=== PATIENT | female | born 1980 | race Hispanic/Latino ===

== ENCOUNTER 2018-01-08 14:30 | Emergency (ER) | payer OTHER, SELFPAY ==
[2018-01-08 15:40] LABS: #Eosinphils 0.1 thou/uL (0.0-0.7); #Lymphocytes 2.5 thou/uL (1.20-3.40); #Monocytes 0.8 thou/uL (0.11-0.59); #Neutrophils 8.8 thou/uL (1.40-6.50); %Basophils 0.4 % (0.0-1.0); %Eosinophils 0.5 % (0.0-10.0); %Lymphocytes 20.3 % (21.0-51.0); %Monocytes 6.7 % (0.0-10.0); %Neutrophils 72.1 % (42.0-75.0); Hemoglobin 13.6 g/dL (12.0-16.0); Mean Corpuscular HGB CONC 34.5 g/dL (32.0-36.0); Mean Corpuscular Hemoglobin 32.6 pg (27.0-31.0); Mean Corpuscular Volume 94.4 fl (81.0-99.0); Mean Platelet Volume 8.4 fL (7.4-10.4); Platelet Count 240 thou/uL (130-400); RBC Distribution Width 13.3 % (11.5-14.5); Red Blood Cell (RBC) Count 4.19 mill/uL (4.20-5.40); White Blood Cell (WBC) Count 12.2 thou/uL (4.8-10.8)
[2018-01-08 15:50] LABS: Pregnancy Test - Urine (BHCG) POSITIVE (Negative); Pregu Control Background? CLEAR/WHITE (CLR/WHITE); Pregu Control Bar Appear? YES (CONTROL BAR); Specific Gravity 1.016 (1.002-1.036)
[2018-01-08 15:53] LABS: Bacteria/HPF 1+ HPF (None Seen); Bilirubin Negative (Negative); Blood, Urine Trace (Negative); Clarity CLOUDY (Clear); Glucose, Urine (Dipstick) Negative (Negative); Hyaline Casts/LPF 4-6 HYALINE CAST LPF (0-3 Hyaline); Leukocyte Negative (Negative); Nitrite Negative (Negative); Pathc Cast-AUWi Flag 1.45 (0-2.49); Protein, Urine (Dipstick) Negative (Neg-Trace); Specific Gravity, Urine 1.016 (1.002-1.036); pH, Urine 6.5 (5.0-9.0)
[2018-01-08 15:54] LABS: Yeast-AUWi Flag 61.3 (0-25.0)
[2018-01-08 16:02] LABS: ALT (SGPT) 10 U/L (8-55); AST (SGOT) 12 U/L (5-34); Albumin 4.2 g/dL (3.5-5.0); Alkaline Phosphatase 69 U/L (40-150); Anion Gap 14 mmol/L (10-20); BUN (Urea Nitrogen) 7 mg/dL (7.0-18.7); Bilirubin, Total 0.6 mg/dL (0.2-1.2); Calc. Creatinine Clearance 0 mL/min (70-130); Calcium 9.3 mg/dL (7.8-10.44); Carbon Dioxide 19 mmol/L (22-29); Chloride 105 mmol/L (98-107); Estimated GFR-MDRD Greater than 90; Globulin 3.2 g/dL (2.4-3.5); Glucose 82 mg/dL (70-105); Potassium 3.2 mmol/L (3.5-5.1); Protein, Total 7.4 g/dL (6.0-8.3); Sodium 135 mmol/L (136-145)
[2018-01-08 16:16] LABS: RBC/HPF 0-3 HPF (0-3); Squamous Epithelial 21-50 HPF (0-3); Yeast-All Forms None Seen HPF (None Seen)
[2018-01-08] MEDS ORDERED: Promethazine HCl 25 MG/ML VIAL ONE (16:24)
[2018-01-08] MEDS ORDERED: Morphine 4 MG/ML VIAL ONE (16:24)
== END 2018-01-08 19:36 | disposition home or self-care (01) ==
LOC: ERS 14:30
DX: O09.511 Supervision of elderly primigravida, first trimester (principal); O21.9 Vomiting of pregnancy, unspecified; O99.611 Diseases of the digestive system complicating pregnancy, first trimester; K21.9 Gastro-esophageal reflux disease without esophagitis; O99.341 Other mental disorders complicating pregnancy, first trimester; F41.9 Anxiety disorder, unspecified; Z79.899 Other long term (current) drug therapy; Z3A.00 Weeks of gestation of pregnancy not specified
CPT/HCPCS: 36415; 51701; 80053; 81003; 81015; 81025; 84702; 85025; 96361; 96365; 96375; A4353; J2270; J2550

== ENCOUNTER 2018-08-12 16:39 | Day surgery (SDC) | payer MEDICAID, OTHER ==
[2018-08-12 17:19] VITALS: BMI 36.6
[2018-08-12 19:24] LABS: Mean Corpuscular HGB CONC 33.3 g/dL (32.0-36.0); Mean Corpuscular Hemoglobin 28.8 pg (27.0-31.0); Mean Corpuscular Volume 86.5 fL (78.0-98.0); Mean Platelet Volume 9.1 fL (7.4-10.4); Platelet Count 247 thou/uL (130-400); RBC Distribution Width 13.9 % (11.5-14.5); Red Blood Cell (RBC) Count 3.84 mill/uL (4.20-5.40); White Blood Cell (WBC) Count 10.9 thou/uL (4.8-10.8)
[2018-08-12 19:45] LABS: ALT (SGPT) 15 U/L (8-55); AST (SGOT) 18 U/L (5-34); Albumin 3.2 g/dL (3.5-5.0); Alkaline Phosphatase 127 U/L (40-150); Anion Gap 12 mmol/L (10-20); BUN (Urea Nitrogen) 11 mg/dL (7.0-18.7); Bilirubin, Total 0.2 mg/dL (0.2-1.2); Calc. Creatinine Clearance 220 mL/min (70-130); Calcium 9.1 mg/dL (7.8-10.44); Carbon Dioxide 23 mmol/L (22-29); Chloride 106 mmol/L (98-107); Estimated GFR-MDRD Greater than 90; Globulin 3.1 g/dL (2.4-3.5); Glucose 68 mg/dL (70-105); Potassium 3.8 mmol/L (3.5-5.1); Protein, Total 6.3 g/dL (6.0-8.3); Sodium 137 mmol/L (136-145)
== END 2018-08-12 20:39 | disposition home or self-care (01) ==
LOC: L&D/OP 16:39
PROVIDERS: ATTEND Student in an Organized Health Care Education/Training Program
DX: O16.9 Unspecified maternal hypertension, unspecified trimester (principal); Z79.52 Long term (current) use of systemic steroids; Z79.899 Other long term (current) drug therapy
CPT/HCPCS: 36415; 80053; 82570; 84156; 85027; 87081; 99284

== ENCOUNTER 2018-08-25 15:37 | Inpatient (IN) | payer OTHER ==
[~2018-08-25 15:37] MED LIST: Bupivacaine HCl 0.25%/Epi 0.0005/PF 10 ML VIAL FS ONE; Terbutaline Sulfate 1 MG/ML VIAL ONE
[2018-08-25] MEDS ORDERED: Diphenoxylate HCl/Atropine Tablet PO PRN (15:53)
[2018-08-25] MEDS ORDERED: Ondansetron PF 4 MG/2 ML Vial IVP PRN ×2 (15:53→22:27)
[2018-08-25] MEDS ORDERED: NS / Oxytocin 40 units/1000ml 1,000 ML IV PRN (15:53)
[2018-08-25] MEDS ORDERED: Acetaminophen 500 MG TAB PO PRN (15:53)
[2018-08-25] MEDS ORDERED: Carboprost 250 MCG/ML AMP IM PRN (15:53)
[2018-08-25] MEDS ORDERED: Promethazine HCl 25 MG/ML VIAL IM PRN ×2 (15:53→22:27)
[2018-08-25] MEDS ORDERED: Lidocaine 1% (PF) 30 ML VIAL SC PRN (15:53)
[2018-08-25] MEDS ORDERED: Ibuprofen 800 MG TAB PO PRN (15:53)
[2018-08-25] MEDS ORDERED: Methylergonovine 0.2 MG/ML VIAL IM PRN (15:53)
[2018-08-25] MEDS ORDERED: Misoprostol 200 MCG TAB PR PRN (15:53)
[2018-08-25] MEDS ORDERED: HYDROcodone/Acetaminophen 5/325 mg Tablet PO PRN (15:53)
[2018-08-25] MEDS ORDERED: Butorphanol Tartrate 1 MG/ML VIAL SLOW IVP PRN (15:53)
[2018-08-25] MEDS: Lactated Ringer's 1,000 ML IV SCH ×2 (16:15→17:27)
[2018-08-25 16:35] LABS: Hemoglobin 10.7 g/dL (12.0-16.0); Mean Corpuscular HGB CONC 32.6 g/dL (32.0-36.0); Mean Corpuscular Hemoglobin 28.8 pg (27.0-31.0); Mean Corpuscular Volume 88.3 fL (78.0-98.0); Mean Platelet Volume 9.2 fL (7.4-10.4); Platelet Count 250 thou/uL (130-400); RBC Distribution Width 14.2 % (11.5-14.5); Red Blood Cell (RBC) Count 3.72 mill/uL (4.20-5.40); White Blood Cell (WBC) Count 12.8 thou/uL (4.8-10.8)
[2018-08-25] MEDS: Misoprostol 100 MCG TAB PO SCH ×2 (16:52→19:57)
[2018-08-25 16:56] LABS: ALT (SGPT) 15 U/L (8-55); AST (SGOT) 17 U/L (5-34); Albumin 3.5 g/dL (3.5-5.0); Alkaline Phosphatase 149 U/L (40-150); Anion Gap 12 mmol/L (10-20); BUN (Urea Nitrogen) 10 mg/dL (7.0-18.7); Bilirubin, Total 0.3 mg/dL (0.2-1.2); Calc. Creatinine Clearance 0 mL/min (70-130); Calcium 9.6 mg/dL (7.8-10.44); Carbon Dioxide 23 mmol/L (22-29); Chloride 108 mmol/L (98-107); Estimated GFR-MDRD Greater than 90; Globulin 2.8 g/dL (2.4-3.5); Glucose 70 mg/dL (70-105); Potassium 4.4 mmol/L (3.5-5.1); Protein, Total 6.3 g/dL (6.0-8.3); Sodium 139 mmol/L (136-145)
[2018-08-25 17:09] VITALS: BMI 37.1
[2018-08-25 17:17] LABS: HBSAg Index 0.16 S/CO (0-0.99); Hep B Surf Ag Non-Reactive S/CO (NonReactive)
[2018-08-25] MEDS ORDERED: NS w/ Oxytocin 10 units 500 ML IV SCH (17:30)
[2018-08-25 18:22] LABS: Syphilis Antibody Nonreactive (Nonreactive); Syphilis Antibody Index 0.03 S/CO (<1.00 Non-Reactive)
[2018-08-25 18:39] LABS: Bilirubin Negative (Negative); Blood, Urine Trace (Negative); Clarity CLOUDY (Clear); Glucose, Urine (Dipstick) Negative (Negative); Leukocyte Trace (Negative); Nitrite Negative (Negative); Protein, Urine (Dipstick) Negative (Neg-Trace); Specific Gravity, Urine 1.017 (1.002-1.036); Urobilinogen 0.2 mg/dL (0.2-1.0)
[2018-08-25 18:42] LABS: Bacteria/HPF Rare-Few HPF (None Seen); Hyaline Casts/LPF 4-6 HYALINE CAST LPF (0-3 Hyaline); Pathc Cast-AUWi Flag 1.45 (0-2.49); WBC/HPF 0-3 HPF (0-3)
[2018-08-25] MEDS: Hydrocortisone Sod Succ/PF 100 mg/2 ml Vial IVP SCH (19:16)
--- NOTE | 2018-08-25 19:29 | PDOC.LDHP ---
Labor and Delivery H&P Chief complaint: loss of fluid HPI: 37yo at 38w5d by LMP with c/o LOF since this morning around 0800, yellow- clear in color, occ ctx. Occ blurry vision, no ALANIS, RUQ pain. Good FM. Current gestational age (weeks): 38 Due date: 09/03/18 Dating criteria: last menstrual period Grav: 1 Para: 0 Current complications: none Abnormal US findings: No Past Medical History: rheumatoid arthritis, vitamin d deficiency, Current medications: pre-juventino vitamins, iron, other (prednisone 10mg po daily, protonix 40mg po daily, vitamin d, folic acid) Previous surgical history: other (ventral hernia repair) Allergies/Adverse Reactions: Allergies Allergy/AdvReac Type Severity Reaction Status Date / Time No Known Drug Allergies Allergy Verified 08/25/18 16:59 Social history: none - Physical Exam Vital signs reviewed and normal: yes General: NAD Heart: RRR Lungs: CTAB Abdomen: gravid Extremeties: no edema FHT: category 1 [place] contractions every: 10min - Vaginal Exam cm dilated: 1 Effacement: 50% Station: -2 - OB Labs Blood type: O RH: positive Antibody Screen: negative HIV: negative RPR: negative HEPSAg: negative 1 hour GCT: negative GBS: negative Urine drug screen: negative Rubella: immune - Assessment L&D Assessment: term rupture in membranes - Plan Plan: admit to L&D, cervical ripening, labor augmentation if indicated, informed consent obtained, anesthesia consult for pain management -: R/o PIH with serial pressures, labs and urine. Inital BP in office was 160/ 100. Mag for severe features Stress dose steroids for chronic steroid use, cont prednisone also.
[2018-08-25] MEDS ORDERED: Fentanyl 4 mcg/Bup 0.1% Cadd 100 ML ONE (21:13)
[2018-08-25] MEDS ORDERED: Hydrocortisone Sod Succ/PF 100 mg/2 ml Vial IVP SCH (22:00)
[2018-08-25] MEDS ORDERED: Lidocaine 1.5% w/Epi 1:200K 30 ML VIAL (Epid Use) ONE (22:06)
[2018-08-25] MEDS ORDERED: diphenhydrAMINE 50 MG/ML VIAL IVP PRN (22:27)
[2018-08-25] MEDS ORDERED: Acetaminophen 325 MG TAB PO PRN (22:27)
[2018-08-25] MEDS ORDERED: Lactated Ringer's 500 ML IV PRN (22:27)
[2018-08-25] MEDS ORDERED: Naloxone HCl 0.4 mg/ml Vial IVP PRN ×2 (22:27)
[2018-08-25] MEDS ORDERED: ePHEDrine/0.9% NaCl/PF SYRINGE 50 mg/10 ml SLOW IVP PRN (22:27)
[2018-08-25] MEDS ORDERED: Eucerin (Mineral Oil/Petrolatum,White) 30 gm Jar TOP PRN (22:27)
[2018-08-25] MEDS ORDERED: Fentanyl 4 mcg/Bupivacaine 0.1% Cassette 100 ML EPIDURAL SCH (22:30)
[2018-08-25] MEDS ORDERED: Communication Order-Pharmacy FS SCH (22:30)
[2018-08-26] MEDS ORDERED: Calcium Carbonate 500 MG ChewTAB PO PRN ×2 (01:39→09:00)
[2018-08-26] MEDS ORDERED: Lidocaine 1% (PF) 30 ML VIAL ONE (01:51)
[2018-08-26] MEDS ORDERED: Misoprostol 200 MCG TAB ONE (02:32)
[2018-08-26] MEDS ORDERED: Methylergonovine 0.2 MG/ML VIAL ONE (02:32)
--- NOTE | 2018-08-26 02:49 | PDOC.OPDEL ---
OB Operative/Delivery Note Delivery Dr/Surgeon: Jaylon Assist: n/a Pre-Delivery Diagnosis: ruptured membrane Procedure/Post Delivery Dx: spontaneous vaginal delivery Weeks gestation: 38 Anesthesia: epidural - Findings A Sex: female - 1 min: 8 - 5 min: 9 - Additional Findings/Plan Placenta delivered: spontaneous Repaired Obstetrical Laceration: 1st degree (repaired with 3-0 vicryl and left periurethral repaired with 3-0 vicryl for hemostasis) Estimated blood loss: 588 cc qbl Compilations/Other Findings: boggy uterus noted after delivery, pitocin infusing, red rubber used to drain bladder, bimanual massage performed and cytotec methergine called for. Tone quickly improved with massage, cytotec 800mcg placed pr, bleeding minimal. Post delivery plan: routine recovery
[2018-08-26] MEDS ORDERED: Lanolin Ointment 7 GM TUBE TOP PRN (03:46)
[2018-08-26] MEDS ORDERED: HYDROcodone/Acetaminophen 5/325 mg Tablet PO PRN (03:46)
[2018-08-26] MEDS ORDERED: Ondansetron PF 4 MG/2 ML Vial IVP PRN (03:46)
[2018-08-26] MEDS ORDERED: Preparation H Ointment 28 GM TUBE PR PRN (03:46)
[2018-08-26] MEDS ORDERED: Milk Of Magnesia 30 ML UDCUP PO PRN (03:46)
[2018-08-26] MEDS ORDERED: Bisacodyl 10 MG SUPP PR PRN (03:46)
[2018-08-26] MEDS ORDERED: Benzocaine/Menthol 20-0.5% 60 ML CAN TOP PRN (03:46)
[2018-08-26] MEDS ORDERED: diphenhydrAMINE 25 MG CAP PO PRN (03:46)
[2018-08-26] MEDS ORDERED: NS / Oxytocin 40 units/1000ml 1,000 ML IV SCH (03:46)
[2018-08-26] MEDS: Hydrocortisone Sod Succ/PF 100 mg/2 ml Vial IVP SCH ×3 (05:42→18:18)
[2018-08-26] MEDS: Misoprostol 100 MCG TAB PO SCH (05:43)
[2018-08-26] MEDS ORDERED: Ibuprofen 800 MG TAB PO SCH (06:00)
[2018-08-26] MEDS: Ferrous Sulfate 325 MG TAB PO SCH ×2 (07:30→15:30)
[2018-08-26] MEDS: HYDROcodone/Acetaminophen 5/325 mg Tablet PO PRN (08:42)
[2018-08-26] MEDS: predniSONE 20 MG TAB PO SCH (08:42)
[2018-08-26] MEDS: Prenatal Vitamin 1 TAB PO SCH (08:43)
[2018-08-26] MEDS: Docusate Calcium (SURFAK) 240 MG CAP PO SCH ×2 (08:43→21:47)
[2018-08-26] MEDS ORDERED: Adacel (T-DAP) 0.5 ML SYRINGE IM ONE (09:00)
[2018-08-26] MEDS ORDERED: Sodium Chloride 0.9% 10 ML ONE (18:17)
[2018-08-27] MEDS: Hydrocortisone Sod Succ/PF 100 mg/2 ml Vial IVP SCH (03:06)
[2018-08-27] MEDS: Ferrous Sulfate 325 MG TAB PO SCH ×2 (07:23→13:13)
[2018-08-27 09:02] VITALS: BP 117/66; TEMP 98.7
[2018-08-27] MEDS: predniSONE 20 MG TAB PO SCH (09:10)
[2018-08-27] MEDS: Prenatal Vitamin 1 TAB PO SCH (09:43)
[2018-08-27] MEDS: Docusate Calcium (SURFAK) 240 MG CAP PO SCH (09:43)
[2018-08-27] MEDS: HYDROcodone/Acetaminophen 5/325 mg Tablet PO PRN (09:45)
== END 2018-08-27 15:20 | disposition home or self-care (01) | DRG 807 ==
LOC: L&D 15:37 → 3SW 08-26 05:14
PROVIDERS: ADMIT Student in an Organized Health Care Education/Training Program; ATTEND Student in an Organized Health Care Education/Training Program
PROC: 10E0XZZ Delivery of Products of Conception, External Approach (ICD-10-PCS; principal; 2018-08-26)
PROC: 0HQ9XZZ Repair Perineum Skin, External Approach (ICD-10-PCS; 2018-08-26)
PROC: 0UQMXZZ Repair Vulva, External Approach (ICD-10-PCS; 2018-08-26)
DX: O42.02 Full-term premature rupture of membranes, onset of labor within 24 hours of rupture (principal); Z37.0 Single live birth; O99.89 Other specified diseases and conditions complicating pregnancy, childbirth and the puerperium; M06.9 Rheumatoid arthritis, unspecified; O99.284 Endocrine, nutritional and metabolic diseases complicating childbirth; E55.9 Vitamin D deficiency, unspecified; O70.0 First degree perineal laceration during delivery; O71.82 Other specified trauma to perineum and vulva; O76 Abnormality in fetal heart rate and rhythm complicating labor and delivery; O77.0 Labor and delivery complicated by meconium in amniotic fluid; Z98.890 Other specified postprocedural states; Z79.899 Other long term (current) drug therapy; Z79.52 Long term (current) use of systemic steroids; Z3A.38 38 weeks gestation of pregnancy
CPT/HCPCS: 51702; 80053; 81001; 85027; 86780; 86850; 86900; 86901; 87340; J0595; J1720; J2001; J2210; J3105; J7506